=== PATIENT | male | born 1995 | race Caucasian/White ===

== ENCOUNTER 2017-06-14 15:59 | Emergency (ER) | payer SELFPAY ==
[~2017-06-14] VITALS: Ht 175.3 cm; Wt 65.0 kg
[~2017-06-14 15:59] MED LIST: Z.0.NO CURRENT MEDS
[2017-06-14 16:01] VITALS: BP 143/79; PULSE 112; RESP 12; TEMP 99; O2SAT 96
[2017-06-14 18:49] VITALS: BP 141/70; PULSE 79; RESP 18; TEMP 99; O2SAT 97
[2017-06-14] MEDS ORDERED: CLOTR1%T TOPICAL (18:53)
--- NOTE | 2017-06-14 18:53 | PD ---
HPI Chief Complaint: Complaint Time Seen by Provider: 18:44 Travel History International Travel<30 days: No Contact w/Intl Traveler<30days: No Traveled to known affect area: No History of Present Illness HPI 22-year-old male here for evaluation of erythema, itching, and slight swelling to his scrotal area. Symptoms started about 3 days ago. He denies pain. No penile discharge. He is sexually active. He works outside, and it has been hot out recently. [facility] Past Medical History Asthma: Yes ( BABY) Developmental Delay: No Diminished Hearing: No Immunizations Current: Yes Social History Alcohol Use: No Tobacco Use: No Substance Use: No Allergies-Medications (Allergen,Severity, Reaction): Coded Allergies: penicillin G (Unverified Allergy, Severe, 06/14/17) Reported Meds & Prescriptions Reported Meds & Active Scripts Active No Active Prescriptions or Reported Medications Review of Systems Except as stated in HPI: all other systems reviewed are Neg Physical Exam Narrative GENERAL: Well-developed, well-nourished, comfortable, no apparent distress. SKIN: Focused skin assessment warm/dry. CARDIOVASCULAR: Regular rate and rhythm. GASTROINTESTINAL: Abdomen soft, non-tender, nondistended. : Normal penis without urethral discharge. Anterior scrotum with slight erythema and hypertrophy. No ulcerative lesions. Bilateral testicles are without swelling, without masses, without tenderness. Normal cremasterics reflex bilaterally. NEUROLOGICAL: Awake and alert. No obvious cranial nerve deficits. Motor grossly within normal limits. Normal speech. PSYCHIATRIC: Appropriate mood and affect; insight and judgment normal. Data Data Last Documented VS Vital Signs Date Time Temp Pulse Resp B/P (MAP) Pulse Ox O2 Delivery O2 Flow Rate FiO2 06/14/17 18:46 18 06/14/17 16:01 99.0 112 143/79 (100) 96 MDM Medical Decision Making Medical Screen Exam Complete: Yes Emergency Medical Condition: Yes Differential Diagnosis Jock itch/tinea cruris, cellulitis Narrative Course Vital signs show heart rate 79, blood pressure 141/70, pulse ox 97% on room air , oral temp of 99F. This is a 22-year-old male with clinical exam findings consistent with tinea cruris. There are no testicular masses, swelling, or tenderness. No urethral discharge. No ulcerative lesions. Plan is to provide him with a prescription for clotrimazole and have him follow-up as an outpatient with a primary care physician this week. He was informed on when to return to the emergency department. He verbalizes understanding and agreement with plan. Diagnosis Primary Impression: Tinea cruris Referrals: [facility] 3 days Additional Instructions: Follow-up with a primary care physician this week. Return to the emergency department for worsening symptoms or any other concerns. Scripts Clotrimazole Topical (Clotrimazole Topical) 1% Soln 1 APPLIC TOPICAL BID for Fungal Infection, #30 ML 0 Refills Prov: Maurice Escalante MD 06/14/17 Disposition: 01 DISCHARGE HOME Condition: Stable Maurice Escalante MD Jun 14, 2017 18:53
== END 2017-06-14 19:07 | disposition home or self-care (01) ==
LOC: NEPD 15:59
DX: B35.6 Tinea cruris (principal)
CPT/HCPCS: 99283